=== PATIENT | female | born 1955 | race Caucasian/White ===

== ENCOUNTER → 2019-05-22 | Outpatient (CLI) | payer BC, MEDICARE ==
[~2019-05-22] MED LIST: MULT-608 PO; OMG1KC PO
--- NOTE | 2019-05-23 19:16 | Diagnostic Imaging Report ---
INDICATION: Routine screening. Correlation is made with prior mammograms from 06/01/2015 and 02/11/2012. 2-D and 3-D bilateral screening mammography was performed. The current study was also evaluated with a Computer Aided Detection (CAD) system. 3-D tomosynthesis was also performed and reviewed. FINDINGS: Scattered fibroglandular densities are identified bilaterally. The overall parenchymal pattern is stable. No dominant mass or malignant-appearing microcalcifications are seen. The axillae are unremarkable. IMPRESSION: No mammographic features suspicious for malignancy are identified. ACR BI-RADS Category 1: Negative. Result letter will be mailed to the patient. Note: At least 10% of breast cancer is not imaged by mammography. Dictated by: Dictated on workstation # [id number]
== END ==
LOC: RAD 14:21
PROVIDERS: ATTEND Family Medicine
DX: Z12.31 Encounter for screening mammogram for malignant neoplasm of breast (principal)
CPT/HCPCS: 77067

== ENCOUNTER → 2019-06-28 | Outpatient (CLI) | payer OTHER, MEDICARE ==
[2019-06-28 14:03] LABS: BILIRUBIN,URINE NEGATIVE (NEGATIVE); CLARITY,URINE VERY CLOUDY; COLOR,URINE YELLOW; GLUCOSE, URINE (UA) NEGATIVE (NEGATIVE); KETONES,URINE 1+ (NEGATIVE); LEUKOCYTE ESTERASE ,URINE 3+ (NEGATIVE); NITRITE,URINE NEGATIVE (NEGATIVE); PH,URINE 5 (5-9); PROTEIN,URINE 2+ (NEGATIVE); UROBILINOGEN,URINE 1 MG/DL (NORMAL)
[2019-06-28 14:15] LABS: BACTERIA,URINE LARGE /HPF; CALCIUM OXALATE CRYSTALS,UR FEW /LPF; WBC,URINE >100 /HPF
== END ==
LOC: LAB 13:55
PROVIDERS: ATTEND Family Medicine
DX: R30.0 Dysuria (principal)
CPT/HCPCS: 81000; 87077; 87088; 87186

== ENCOUNTER → 2022-03-20 | Outpatient (CLI) | payer OTHER, MEDICARE ==
--- NOTE | 2022-03-20 16:07 | Diagnostic Imaging Report ---
INDICATION: Burning sensation in the outer left breast. Correlation is made with prior mammogram from 05/22/2019 and 06/01/2015. 2-D and 3-D bilateral diagnostic mammography was performed with CAD. Both breasts are heterogeneously dense, limiting the sensitivity of mammography. No mass or malignant-appearing microcalcifications are seen. Axillae are unremarkable. IMPRESSION: No mammographic features suspicious for malignancy are identified. Even so, directed sonographic interrogation of the area of burning and pain in the outer left breast is recommended and will be performed today. ACR BI-RADS Category 0: Incomplete. (Needs additional imaging evaluation). Result letter will be mailed to the patient. Note: At least 10% of breast cancer is not imaged by mammography. BI-RADS 0 Dictated by: Dictated on workstation # [id number]
--- NOTE | 2022-03-20 16:09 | Diagnostic Imaging Report ---
INDICATION: Burning sensation in the outer left breast. Correlation is made with diagnostic mammogram earlier same day. Sonographic interrogation of the area of burning and pain in the outer left breast was performed. No sonographic abnormality is seen. No solid or cystic masses detected. IMPRESSION: No sonographic abnormality is identified. ACR BI-RADS Category 1: Negative. Result letter will be mailed to the patient. Note: At least 10% of breast cancer is not imaged by mammography. BI-RADS Category 1 Dictated by: Dictated on workstation # [id number]
== END ==
LOC: RAD 12:45
PROVIDERS: ATTEND Nurse Practitioner Family
DX: R20.8 Other disturbances of skin sensation (principal)
CPT/HCPCS: 76642; 77066; G0279; 77062

== ENCOUNTER → 2022-03-23 | Outpatient (REF) ==
--- NOTE | 2022-03-23 10:46 | Diagnostic Imaging Report ---
INDICATION: Right shoulder pain and injury. TIME OF EXAM: 10:42 AM FINDINGS: 2 views right clavicle demonstrate normal acromioclavicular alignment. The clavicle appears intact. No fractures are seen. Glenohumeral alignment is normal. IMPRESSION: No acute abnormality is detected. Dictated by: Dictated on workstation # [id number]
--- NOTE | 2022-03-23 10:46 | Diagnostic Imaging Report ---
Indication: Neck pain and clavicle pain. Time of Exam: 10:39 AM Three views of the cervical spine were obtained. Curvature of the cervical spine is normal. There is severe degenerative disc disease at C5-C6 and C6-C7 levels with disc space narrowing and marginal spurring. The prevertebral tissues are normal. Odontoid is intact. No fractures are seen. IMPRESSION: 1. Severe lower cervical spondylosis. No acute bony abnormality is detected. Dictated by: Dictated on workstation # [id number]
== END ==
LOC: OCC 10:28
PROVIDERS: ATTEND Family Medicine
DX: M54.2 Cervicalgia (principal)
CPT/HCPCS: 72040; 73000